=== PATIENT | male | born 2000 | race Caucasian/White ===

== ENCOUNTER 2024-07-21 08:41 | Emergency (ER) | payer OTHER ==
[~2024-07-21] VITALS: Ht 172.7 cm; Wt 72.6 kg
[2024-07-21 08:46] VITALS: PULSE 117; RESP 16; TEMP 97.8; O2SAT 99
[2024-07-21] MEDS ORDERED: NAPROXEN250 MG PO (09:38)
== END 2024-07-21 10:01 | disposition home or self-care (01) ==
LOC: ER 08:55
DX: M25.561 Pain in right knee (principal); Y93.B9 Activity, other involving muscle strengthening exercises
CPT/HCPCS: 99284